=== PATIENT | male | born 1990 | race Caucasian/White ===

== ENCOUNTER → 2018-04-07 | Outpatient (CLI) | payer BC ==
--- NOTE | 2018-04-07 13:43 | US ---
EXAMINATION TYPE: US abdomen complete DATE OF EXAM: 04/07/2018 COMPARISON: NONE CLINICAL HISTORY: R10.9 Abdominal Pain. General pain, bloating EXAM MEASUREMENTS: Liver Length: 18.8 cm Gallbladder Wall: 0.2 cm CHD: 0.4 cm Spleen: 13.0 cm Right Kidney: 10.5x 5.7 x 6.4 cm Left Kidney: 10.5 x 5.4 x 5.6 cm Limited exam due to patient body habitus and overlying bowel gas Pancreas: Appears echogenic, gas obscuring tail Liver: Increased attenuation, decreased visualization of vessels suggestive of fatty infiltrate. Ap pears enlarged and heterogenous Gallbladder: wnl Evidence for sonographic Lawson's sign: neg CBD: Obscured by overlying bowel gas CHD: wnl Spleen: wnl Right Kidney: wnl Left Kidney: wnl Upper IVC: Obscured by overlying bowel gas Abd Aorta: Obscured by overlying bowel gas The intrahepatic portion of the IVC and proximal abdominal aorta are within normal limits. There i s no evidence of cholelithiasis. Common bile duct is unremarkable. The visualized portions of the p ancreas are homogenous. The spleen is unremarkable. Kidneys are symmetric and free of hydronephrosi s. No renal lesions are seen. IMPRESSION: 1. Hepatomegaly with underlying hepatic steatosis versus diffuse hepatocellular disease.
== END | disposition home or self-care (01) ==
LOC: RADUSWWP 12:56
PROVIDERS: ATTEND Family Medicine
DX: R16.0 Hepatomegaly, not elsewhere classified (principal)
CPT/HCPCS: 76700

== ENCOUNTER 2024-12-10 15:57 | Emergency (ER) | payer BC ==
--- NOTE | 2024-12-10 16:33 | ED ---
Male Urogenital HPI - General Chief complaint: Urogenital Stated complaint: Urogenital Time Seen by Provider: 12/10/24 16:14 Source: patient, RN notes reviewed Mode of arrival: ambulatory Limitations: no limitations - History of Present Illness Initial comments: This is a 34-year-old male presenting with worsening testicular pain (06/30) and swelling. Patient endorses recently being diagnosed with a varicocele and hydrocele 2 days ago and advised to follow-up with urology, with the soonest appointment being 2 weeks from now. States he is also being treated for a UTI with ciprofloxacin despite not having urinary symptoms. Endorses use of Motrin 600 and Tylenol with minimal relief. Denies urethral discharge, hematuria, dysuria, increased urinary frequency. MD Complaint: testicle pain, testicle swelling Onset/Timin -: days(s) Severity scale (1-10): 10 Consistency: constant - Related Data Previous Rx's Medication Instructions Recorded Doxycycline [Vibramycin] 100 mg PO BID #20 capsule 12/10/24 Allergies Allergy/AdvReac Type Severity Reaction Status Date / Time hydrocodone AdvReac Unknown Verified 12/10/24 16:19 Review of Systems ROS Statement: Those systems with pertinent positive or pertinent negative responses have been documented in the HPI. ROS Other: All systems not noted in ROS Statement are negative. Past Medical History Past Medical History: Asthma History of Any Multi-Drug Resistant Organisms: None Reported Past Surgical History: No Surgical Hx Reported Past Psychological History: No Psychological Hx Reported Smoking Status: Never smoker Past Alcohol Use History: Occasional Past Drug Use History: None Reported General Exam Limitations: no limitations General appearance: alert, in no apparent distress Head exam: Present: atraumatic, normocephalic, normal inspection Eye exam: Present: normal appearance, PERRL, EOMI. Absent: scleral icterus, conjunctival injection, periorbital swelling ENT exam: Present: normal exam, mucous membranes moist Neck exam: Present: normal inspection. Absent: tenderness, meningismus, lymphadenopathy Respiratory exam: Present: normal lung sounds bilaterally. Absent: respiratory distress, wheezes, rales, rhonchi, stridor Cardiovascular Exam: Present: regular rate, normal rhythm, normal heart sounds. Absent: systolic murmur, diastolic murmur, rubs, gallop, clicks GI/Abdominal exam: Present: soft, normal bowel sounds. Absent: distended, tenderness, guarding, rebound, rigid exam: Present: testicular tenderness, scrotal swelling, other (Diffuse left testicular edema and tenderness. Cremasteric reflex intact). Absent: urethral discharge, vertical testicular lie Extremities exam: Present: normal inspection, full ROM, normal capillary refill. Absent: tenderness, pedal edema, joint swelling, calf tenderness Back exam: Present: normal inspection Neurological exam: Present: alert, oriented X3, CN II-XII intact Psychiatric exam: Present: normal affect, normal mood Skin exam: Present: warm, dry, intact, normal color. Absent: rash Course Vital Signs 12/10/24 12/10/24 12/10/24 16:11 18:22 19:00 Temperature 99.0 F 100.6 F H Pulse Rate 111 H 119 H 113 H Respiratory 18 20 19 Rate Blood Pressure 183/109 143/92 132/89 O2 Sat by Pulse 99 97 97 Oximetry 12/10/24 20:25 Temperature 99.4 F Pulse Rate 98 Respiratory 19 Rate Blood Pressure 140/82 O2 Sat by Pulse 96 Oximetry Medical Decision Making - Medical Decision Making Was pt. sent in by a medical professional or institution (, PA, HEALTHCARE ANALYST, urgent care, hospital, or senior care...) When possible be specific @ -[No] Did you speak to anyone other than the patient for history (EMS, parent, family, police, friend...)? What history was obtained from this source @ -[No] Did you review nursing and triage notes (agree or disagree)? Why? @ -[I reviewed and agree with nursing and triage notes] Were old charts reviewed (outside hosp., previous admission, EMS record, old EKG, old radiological studies, urgent care reports/EKG's, senior care records)? Report findings @ -[No old charts were reviewed] Differential Diagnosis (chest pain, altered mental status, abdominal pain women, abdominal pain men, vaginal bleeding, weakness, fever, dyspnea, syncope, headache, dizziness, GI bleed, back pain, seizure, CVA, palpatations, mental health, musculoskeletal)? @ -Varicocele, hydrocele, orchitis, epididymitis, STI, UTI, prostatitis, this is not an exhaustive list EKG interpreted by me (3pts min.). @ -Not done X-rays interpreted by me (1pt min.). @ -[None done] CT interpreted by me (1pt min.). @ -[None done] U/S interpreted by me (1pt. min.). @ -[None done] What testing was considered but not performed or refused? (CT, X-rays, U/S, labs)? Why? @ -[None] What meds were considered but not given or refused? Why? @ -[None] Did you discuss the management of the patient with other professionals (professionals i.e. , PA, HEALTHCARE ANALYST, lab, RT, psych nurse, sr. social media & mobile manager, truck driver heavy, teacher, biosecurity officer, case consultant)? Give summary @ -[No] Was smoking cessation discussed for >3mins.? @ -[No] Was critical care preformed (if so, how long)? @ -[No] Were there social determinants of health that impacted care today? How? (Homelessness, low income, unemployed, alcoholism, drug addiction, transportation, low edu. Level, literacy, decrease access to med. care, skilled nursing, rehab)? @ -[No] Was there de-escalation of care discussed even if they declined (Discuss DNR or withdrawal of care, Hospice)? DNR status @ -[No] What co-morbidities impacted this encounter? (DM, HTN, Smoking, COPD, CAD, Cancer, CVA, ARF, Chemo, Hep., AIDS, mental health diagnosis, sleep apnea, morbid obesity)? @ -[None] Was patient admitted / discharged? Hospital course, mention meds given and route, prescriptions, significant lab abnormalities, going to OR and other pertinent info. @ -[hospital course] Undiagnosed new problem with uncertain prognosis? @ -[No] Drug Therapy requiring intensive monitoring for toxicity (Heparin, Nitro, Insulin, Cardizem)? @ -[No] Were any procedures done? @ -[No] Diagnosis/symptom? @ -Epididymoorchitis Acute, or Chronic, or Acute on Chronic? @ -Acute Uncomplicated (without systemic symptoms) or Complicated (systemic symptoms)? @ -Uncomplicated Side effects of treatment? @ -[No] Exacerbation, Progression, or Severe Exacerbation? @ -Progression Poses a threat to life or bodily function? How? (Chest pain, USA, IA, pneumonia, PE, COPD, DKA, ARF, appy, cholecystitis, CVA, Diverticulitis, Homicidal, Suicidal, threat to staff... and all critical care pts) @ -[No] - Lab Data Result diagrams: 12/10/24 18:17 12/10/24 18:17 Lab Results 12/10/24 12/10/24 12/10/24 Range/Units 18:17 18:17 20:15 WBC 9.4 (3.8-10.6) k/uL RBC 5.30 (4.30-5.90) m/uL Hgb 16.1 (13.0-17.5) gm/dL Hct 48.5 (39.0-53.0) % MCV 91.5 (80.0-100.0) fL MCH 30.4 (25.0-35.0) pg MCHC 33.2 (31.0-37.0) g/dL RDW 13.4 (11.5-15.5) % Plt Count 226 (150-450) k/uL MPV 8.4 Neutrophils % 75 % Lymphocytes % 15 % Monocytes % 6 % Eosinophils % 2 % Basophils % 1 % Neutrophils # 7.1 (1.3-7.7) k/uL Lymphocytes # 1.4 (1.0-4.8) k/uL Monocytes # 0.6 (0-1.0) k/uL Eosinophils # 0.2 (0-0.7) k/uL Basophils # 0.1 (0-0.2) k/uL Sodium 142 (137-145) mmol/L Potassium 4.2 (3.5-5.1) mmol/L Chloride 104 (98-107) mmol/L Carbon Dioxide 27 (22-30) mmol/L Anion Gap 11 mmol/L BUN 16 (9-20) mg/dL Creatinine 0.70 (0.66-1.25) mg/dL Est GFR (CKD-EPI)AfAm >90 (>60 ml/min/1.73 sqM) Est GFR (CKD-EPI)NonAf >90 (>60 ml/min/1.73 sqM) Glucose 104 H (74-99) mg/dL Calcium 9.2 (8.4-10.2) mg/dL Total Bilirubin 0.6 (0.2-1.3) mg/dL AST 49 (17-59) U/L ALT 89 H (4-49) U/L Alkaline Phosphatase 98 (38-126) U/L Total Protein 8.0 (6.3-8.2) g/dL Albumin 4.7 (3.5-5.0) g/dL Urine Color Light Yellow Urine Appearance Clear (Clear) Urine pH 7.5 (5.0-8.0) Ur Specific [place] 1.022 (1.001-1.035) Urine Protein Negative (Negative) Urine Glucose (UA) Negative (Negative) Urine Ketones Negative (Negative) Urine Blood Negative (Negative) Urine Nitrite Negative (Negative) Urine Bilirubin Negative (Negative) Urine Urobilinogen <2.0 (<2.0) mg/dL Ur Leukocyte Esterase Large H (Negative) Urine RBC 3 (0-5) /hpf Urine WBC 135 H (0-5) /hpf Ur Squamous Epith Cells 1 (0-4) /hpf Amorphous Sediment Rare H (None) /hpf Urine Bacteria Occasional H (None) /hpf Urine Mucus Rare H (None) /hpf Disposition Clinical Impression: Orchitis and epididymitis, UTI (urinary tract infection) Disposition: HOME SELF-CARE Condition: Good Instructions (If sedation given, give patient instructions): Epididymo-Orchitis (ED), Urinary Tract Infection in Men (ED) Additional Instructions: Follow-up with urologist for scheduled appointment. Take antibiotic regimens to completion, even if feeling better per way through. Supportive underwear/jockstrap recommended. Prescriptions: Doxycycline [Vibramycin] 100 mg PO BID #20 capsule Is patient prescribed a controlled substance at d/c from ED?: No Referrals: Spencer Joel MD [Primary Care Provider] - 1-2 days Time of Disposition: 18:54
--- NOTE | 2024-12-10 16:53 | XR ---
EXAMINATION TYPE: XR chest 2V DATE OF EXAM: 12/10/2024 4:43 PM COMPARISON: None. CLINICAL INDICATION: Male, 34 years old with history of Chest Pain, TECHNIQUE: Frontal and lateral views of the chest are obtained. FINDINGS: There is no focal air space opacity, pleural effusion, or pneumothorax seen. The cardiac silhouette size is within normal limits. The osseous structures are intact. IMPRESSION: No acute cardiopulmonary process. [facility], , 12/10/2024 4:50 PM
--- NOTE | 2024-12-10 18:03 | US ---
EXAMINATION TYPE: US scrotum with doppler. DATE OF EXAM: 12/10/2024 COMPARISON: NONE CLINICAL INDICATION: Male, 34 years old with history of Increased testicular pain and swelling; Patie nt had discomfort left testicle on Thursday, then pain and swelling started Thursday and has increased si nce. Patient states he had ultrasound at outside facility a couple days ago and they found a hydroce le and varicocele. TECHNIQUE: Grayscale, color Doppler and spectral Doppler imaging of the scrotum. FINDINGS: EXAM MEASUREMENTS: TESTICLES: Right Testicle: 4.7 x 3.0 x 1.9 cm Left Testicle: 4.8 x 3.2 x 2.6 cm. Appears slightly heterogeneous with increased vascularity. EPIDIDYMIS HEAD: Right Epididymis: 0.9 x 1.2 x 1.0 cm. *Subcentimeter anechoic area noted within epi head. Left Epididymis: 1.4 x 1.6 x 2.0 cm. Slightly enlarged and increased vascularity noted. Doppler performed to assess for testicular vascularity; bilateral color flow and spectral waveforms a re seen. Presence of hydroceles: Yes, left: 4.3 x 2.6 x 1.9 cm. Presence of varicoceles: *Prominent vessels seen lateral to left testicle measure up to 4 mm. IMPRESSION: Findings are felt to reflect left-sided epididymo orchitis. Correlate clinically. [facility], , 12/10/2024 6:00 PM
[2024-12-10 18:25] LABS: Basophils # (A) 0.1 k/uL (0-0.2); Basophils % (A) 1 %; Eosinophils # (A) 0.2 k/uL (0-0.7); Eosinophils % (A) 2 %; HCT 48.5 % (39.0-53.0); HGB 16.1 gm/dL (13.0-17.5); Lymphocytes # (A) 1.4 k/uL (1.0-4.8); Lymphocytes % (A) 15 %; MCH 30.4 pg (25.0-35.0); MCHC 33.2 g/dL (31.0-37.0); MCV 91.5 fL (80.0-100.0); Mean Platelet Volume 8.4; Monocytes # (A) 0.6 k/uL (0-1.0); Monocytes % (A) 6 %; Neutrophils # (A) 7.1 k/uL (1.3-7.7); Neutrophils % (A) 75 %; Platelet Count 226 k/uL (150-450); RDW 13.4 % (11.5-15.5); WBC 9.4 k/uL (3.8-10.6)
[2024-12-10] MEDS: KETOROLAC 15 MG/ML 1 ML VIAL IVP STA (18:29)
[2024-12-10] MEDS: HYDROmorphone 0.5 MG/0.5 ML SYRINGE IVP STA (18:30)
[2024-12-10 18:37] LABS: ALT 89 U/L (4-49); AST 49 U/L (17-59); African American GFR (CKD) >90 (>60 ml/min/1.73 sqM); Albumin 4.7 g/dL (3.5-5.0); Alkaline Phosphatase 98 U/L (38-126); Anion Gap 11 mmol/L; Blood Urea Nitrogen 16 mg/dL (9-20); Calcium 9.2 mg/dL (8.4-10.2); Carbon Dioxide 27 mmol/L (22-30); Chloride 104 mmol/L (98-107); Glucose 104 mg/dL (74-99); Non-African American GFR(CKD) >90 (>60 ml/min/1.73 sqM); Potassium 4.2 mmol/L (3.5-5.1); Sodium 142 mmol/L (137-145); Total Bilirubin 0.6 mg/dL (0.2-1.3)
[2024-12-10] MEDS: cefTRIAXone IN SWFI 1,000 MG/10 ML SYRINGE IVP STA (18:50)
[2024-12-10] MEDS: ACETAMINOPHEN TAB 500 MG TAB PO STA (18:53)
[2024-12-10] MEDS: AZITHROMYCIN 500 MG TAB PO STA (18:53)
[2024-12-10] MEDS: IBUPROFEN 800 MG TAB PO STA (18:54)
[2024-12-10] MEDS: DOXYCYCLINE 100 MG TABLET PO ONE (18:55)
[2024-12-10 19:01] VITALS: RESP 19
[2024-12-10 20:30] LABS: Amorphous Sediment,Urine Rare /hpf; Appearance,Urine Clear (Clear); Bacteria,Urine Occasional /hpf; Bilirubin,Urine Negative (Negative); Blood,Urine Negative (Negative); Color,Urine Light Yellow; Glucose,Urine (UA) Negative (Negative); Ketones,Urine Negative (Negative); Leukocyte Esterase,Urine Large (Negative); Mucus,Urine Rare /hpf; Nitrite,Urine Negative (Negative); PH, Urine 7.5 (5.0-8.0); Protein,Urine Negative (Negative); RBC,Urine 3 /hpf (0-5); Specific Gravity,Urine 1.022 (1.001-1.035); Squamous Epithelial Cell,Urine 1 /hpf (0-4); Urobilinogen,Urine <2.0 mg/dL (<2.0); WBC,Urine 135 /hpf (0-5)
[2024-12-10 22:23] VITALS: BP 128/65; PULSE 105; TEMP 98.5
[2024-12-12 12:50] LABS: N. gonorrhoeae,PCR Negative (Negative)
[2024-12-12 13:16] LABS: C. trachomatis,PCR Negative (Negative)
== END 2024-12-10 22:23 | disposition home or self-care (01) ==
LOC: EC 15:57
DX: N45.3 Epididymo-orchitis (principal); N39.0 Urinary tract infection, site not specified; Z88.5 Allergy status to narcotic agent
CPT/HCPCS: 36415; 80053; 85025; 81001; 87491; 87591; 87086; 71046; 93975; 76870; 99284; 96374; 96375 ×2; J0696; J1885; J1171

== ENCOUNTER 2024-12-12 11:15 | Inpatient (IN) | payer BC ==
--- NOTE | 2024-12-12 11:30 | ED ---
Male Urogenital HPI - General Source: patient, RN notes reviewed Mode of arrival: ambulatory Limitations: no limitations <Osmel Mishra - Last Filed: 12/12/24 11:29> - General Source: patient, RN notes reviewed Mode of arrival: ambulatory Limitations: no limitations <Kelly Reyes - Last Filed: 12/12/24 18:22> - General Chief complaint: Urogenital Stated complaint: testicular pain Time Seen by Provider: 12/12/24 11:29 - History of Present Illness Initial comments: Quick note: 34-year-old male presented the ER for evaluation testicular pain. Patient was seen here on Thursday and diagnosed with epididymoorchitis and started on ciprofloxacin and doxycycline. Patient followed up with PCP today and stated he was having chills and shivering last night. Patient sent him to the emergency department for evaluation given concern of worsening infection. Patient denies concern of STDs. (Osmel Mishra) This is a 34-year-old male who presents to the emergency department for left- sided testicular pain. States that he was initially started on ciprofloxacin 5 days ago, but was not improving and then presented to the emergency department 2 days ago. He was diagnosed with epididymoorchitis and started on doxycycline in addition to the ciprofloxacin. States that he continues taking these medications but has not gotten any better, states that he feels like he is getting worse. He started to develop chills but has not measured any fevers. Reports mild nausea. Pain is also now starting to radiate into his left hip. Denies any concern of STDs. He is taking ibuprofen and Tylenol without any relief. He followed up with his PCP who advised he come here for IV antibiotics. (Kelly Reyes) - Related Data Home Medications Medication Instructions Recorded Confirmed Albuterol Inhaler [Ventolin Hfa 2 puff INHALATION RT-QID PRN 12/12/24 12/12/24 Inhaler] Ciprofloxacin HCl [Cipro] 500 mg PO Q12HR 12/12/24 12/12/24 Ibuprofen [Motrin] 600 mg PO Q8H PRN 12/12/24 12/12/24 Multivitamins, Thera [Multivitamin 1 tab PO DAILY 12/12/24 12/12/24 (formulary)] Previous Rx's Medication Instructions Recorded Doxycycline [Vibramycin] 100 mg PO BID #20 capsule 12/10/24 Allergies Allergy/AdvReac Type Severity Reaction Status Date / Time hydrocodone AdvReac Unknown Verified 12/12/24 14:30 Review of Systems ROS Other: All systems not noted in ROS Statement are negative. <Osmel Mishra - Last Filed: 12/12/24 11:29> ROS Other: All systems not noted in ROS Statement are negative. <Kelly Reyes - Last Filed: 12/12/24 18:22> ROS Statement: Those systems with pertinent positive or pertinent negative responses have been documented in the HPI. Past Medical History Past Medical History: Asthma History of Any Multi-Drug Resistant Organisms: None Reported Past Surgical History: No Surgical Hx Reported Past Psychological History: No Psychological Hx Reported Smoking Status: Never smoker Past Alcohol Use History: Occasional Past Drug Use History: None Reported <Osmel Mishra - Last Filed: 12/12/24 11:29> General Exam <Osmel Mishra - Last Filed: 12/12/24 11:29> General appearance: alert, in no apparent distress Head exam: Present: atraumatic, normocephalic, normal inspection Respiratory exam: Present: normal lung sounds bilaterally. Absent: respiratory distress, wheezes, rales, rhonchi, stridor Cardiovascular Exam: Present: regular rate, normal rhythm exam: Present: other (Left sided scrotal tenderness and swelling) Neurological exam: Present: alert, oriented X3, CN II-XII intact Psychiatric exam: Present: normal affect, normal mood Skin exam: Present: warm, dry, intact, normal color. Absent: rash <Kelly Reyes - Last Filed: 12/12/24 18:22> - General Exam Comments Initial Comments: Visual Physical Exam Vital signs reviewed General: Well-appearing, nontoxic, no acute distress. Head: Normocephalic, atraumatic Eyes: PERRLA, EOMI ENT: Airway patent Chest: Nonlabored breathing Skin: No visual rash, normal skin tone Neuro: Alert and oriented 3 Musculoskeletal: No gross abnormalities (Osmel Mishra) Course Vital Signs 12/12/24 12/12/24 11:34 16:23 Temperature 98 F 98.9 F Pulse Rate 97 83 Respiratory 18 20 Rate Blood Pressure 137/89 119/78 O2 Sat by Pulse 99 98 Oximetry Medical Decision Making <Osmel Mishra - Last Filed: 12/12/24 11:29> - Lab Data Result diagrams: 12/12/24 11:56 12/12/24 11:56 - Radiology Data Radiology results: report reviewed, image reviewed <Kelly Reyes - Last Filed: 12/12/24 18:22> - Medical Decision Making I performed the quick note portion of this chart. Electronically signed by Osmel Mishra PA-C (Osmel Mishra) This is a 34-year-old male who presents to the emergency department for testicular pain. Was pt. sent in by a medical professional or institution? @ -No Did you speak to anyone other than the patient for history? @ -No Did you review nursing and triage notes? @ -Yes, and I agree, it is accurate with regards to the patient's symptoms. Were old charts reviewed? @ -Scrotal ultrasound from 12/10/2024 demonstrating left-sided epididymoorchitis. Urine culture from 12/10/2024 revealed no growth. Gonorrhea and Chlamydia testing from 12/10/24 were negative. Differential Diagnosis? @ -UTI, epididymitis, orchitis, testicular torsion, this is not meant to be an all-inclusive list. EKG interpreted by me (3pts min.)? @ -Not obtained X-rays interpreted by me (1pt min.)? @ -Not obtained CT interpreted by me (1pt min.)? @ -Not obtained U/S interpreted by me (1pt. min.)? @ -Scrotal ultrasound obtained. My interpretation identifies no evidence of testicular torsion. What testing was considered but not performed? (CT, X-rays, U/S, labs)? Why? @ -None What meds were considered but not given? Why? @ -None Did you discuss the management of the patient with other professionals? @ -Yes, Dr. Buckley, urology, who advised admission to medicine and starting him on ceftriaxone and vancomycin. [facility] accepts the patient for admission to medicine. Did you reconcile home meds? @ -Yes Was smoking cessation discussed for >3mins.? @ -No Was critical care preformed (if so, how long)? @ -No Were there social determinants of health that impacted care today? How? (Homelessness, low income, unemployed, alcoholism, drug addiction, transportation, low edu. Level, literacy, decrease access to med. care, prison, rehab)? @ -No Was there de-escalation of care discussed even if they declined? (Discuss DNR or withdrawal of care, Hospice)? @ -No What co-morbidities impacted this encounter? (DM, HTN, Smoking, COPD, CAD, Cancer, CVA, Hep., AIDS, mental health diagnosis, sleep apnea, morbid obesity)? @ -None Was patient admitted / discharged? @ -Admitted. Lab work demonstrates mild leukocytosis with a white blood cell count of 10.9. CRP elevated at 14.7. Urinalysis demonstrates elevated WBCs and rare bacteria, however this is also how his urine appeared a couple of days ago and the culture returned negative. Gonorrhea and Chlamydia testing from that timeframe are also negative. We did repeat the ultrasound and findings continue to be consistent with left epididymoorchitis based on asymmetrically increased vascularity in the left testes. Case discussed with Dr. Buckley, urology, who was agreeable to admission for failure of outpatient management. He had first been given 1 g ceftriaxone and 750 mg of levofloxacin when he got here. Per Dr. Buckley's recommendations, he was then given a dose of vancomycin and they will plan to continue him on ceftriaxone and vancomycin. Patient admitted to medicine for left epididymoorchitis and failure of outpatient management. Urology and ID listed as consult. Case discussed with ED attending Dr. Gilmore. Undiagnosed new problem with uncertain prognosis? @ -None Drug Therapy requiring intensive monitoring for toxicity (Heparin, Nitro, Insulin, Cardizem)? @ -None Were any procedures done? @ -None Diagnosis/symptom? @ -Left epididymoorchitis, failure of outpatient management Acute, or Chronic, or Acute on Chronic? @ -Acute Uncomplicated (without systemic symptoms) or Complicated (systemic symptoms)? @ -Complicated Side effects of treatment? @ -None Exacerbation, Progression, or Severe Exacerbation] @ -Not applicable Poses a threat to life or bodily function? @ -Yes, can lead to worsening infection (Kelly Reyes) - Lab Data Lab Results 12/12/24 12/12/24 12/12/24 Range/Units 11:56 11:56 11:56 WBC 10.9 H (3.8-10.6) k/uL RBC 5.02 (4.30-5.90) m/uL Hgb 15.2 (13.0-17.5) gm/dL Hct 45.2 (39.0-53.0) % MCV 90.1 (80.0-100.0) fL MCH 30.3 (25.0-35.0) pg MCHC 33.6 (31.0-37.0) g/dL RDW 13.1 (11.5-15.5) % Plt Count 234 (150-450) k/uL MPV 7.8 Neutrophils % 74 % Lymphocytes % 16 % Monocytes % 7 % Eosinophils % 1 % Basophils % 0 % Neutrophils # 8.1 H (1.3-7.7) k/uL Lymphocytes # 1.8 (1.0-4.8) k/uL Monocytes # 0.7 (0-1.0) k/uL Eosinophils # 0.2 (0-0.7) k/uL Basophils # 0.1 (0-0.2) k/uL Sodium 138 (137-145) mmol/L Potassium 4.4 (3.5-5.1) mmol/L Chloride 107 (98-107) mmol/L Carbon Dioxide 22 (22-30) mmol/L Anion Gap 9 mmol/L BUN 14 (9-20) mg/dL Creatinine 0.75 (0.66-1.25) mg/dL Est GFR (CKD-EPI)AfAm >90 (>60 ml/min/1.73 sqM) Est GFR (CKD-EPI)NonAf >90 (>60 ml/min/1.73 sqM) Glucose 109 H (74-99) mg/dL Plasma Lactic Acid Maurizio 1.1 (0.7-2.0) mmol/L Calcium 9.0 (8.4-10.2) mg/dL Total Bilirubin 0.7 (0.2-1.3) mg/dL AST 29 (17-59) U/L ALT 54 H (4-49) U/L Alkaline Phosphatase 90 (38-126) U/L C-Reactive Protein (<1.0) mg/dL Total Protein 7.5 (6.3-8.2) g/dL Albumin 4.3 (3.5-5.0) g/dL Urine Color Urine Appearance (Clear) Urine pH (5.0-8.0) Ur Specific [place] (1.001-1.035) Urine Protein (Negative) Urine Glucose (UA) (Negative) Urine Ketones (Negative) Urine Blood (Negative) Urine Nitrite (Negative) Urine Bilirubin (Negative) Urine Urobilinogen (<2.0) mg/dL Ur Leukocyte Esterase (Negative) Urine RBC (0-5) /hpf Urine WBC (0-5) /hpf Urine Bacteria (None) /hpf Urine Mucus (None) /hpf 12/12/24 12/12/24 Range/Units 11:56 13:41 WBC (3.8-10.6) k/uL RBC (4.30-5.90) m/uL Hgb (13.0-17.5) gm/dL Hct (39.0-53.0) % MCV (80.0-100.0) fL MCH (25.0-35.0) pg MCHC (31.0-37.0) g/dL RDW (11.5-15.5) % Plt Count (150-450) k/uL MPV Neutrophils % % Lymphocytes % % Monocytes % % Eosinophils % % Basophils % % Neutrophils # (1.3-7.7) k/uL Lymphocytes # (1.0-4.8) k/uL Monocytes # (0-1.0) k/uL Eosinophils # (0-0.7) k/uL Basophils # (0-0.2) k/uL Sodium (137-145) mmol/L Potassium (3.5-5.1) mmol/L Chloride (98-107) mmol/L Carbon Dioxide (22-30) mmol/L Anion Gap mmol/L BUN (9-20) mg/dL Creatinine (0.66-1.25) mg/dL Est GFR (CKD-EPI)AfAm (>60 ml/min/1.73 sqM) Est GFR (CKD-EPI)NonAf (>60 ml/min/1.73 sqM) Glucose (74-99) mg/dL Plasma Lactic Acid Maurizio (0.7-2.0) mmol/L Calcium (8.4-10.2) mg/dL Total Bilirubin (0.2-1.3) mg/dL AST (17-59) U/L ALT (4-49) U/L Alkaline Phosphatase (38-126) U/L C-Reactive Protein 14.7 H (<1.0) mg/dL Total Protein (6.3-8.2) g/dL Albumin (3.5-5.0) g/dL Urine Color Light yellow Urine Appearance Clear (Clear) Urine pH 5.5 (5.0-8.0) Ur Specific [place] 1.011 (1.001-1.035) Urine Protein Negative (Negative) Urine Glucose (UA) Negative (Negative) Urine Ketones Negative (Negative) Urine Blood Trace H (Negative) Urine Nitrite Negative (Negative) Urine Bilirubin Negative (Negative) Urine Urobilinogen <2.0 (<2.0) mg/dL Ur Leukocyte Esterase Moderate H (Negative) Urine RBC 2 (0-5) /hpf Urine WBC 16 H (0-5) /hpf Urine Bacteria Rare H (None) /hpf Urine Mucus Rare H (None) /hpf Disposition <Osmel Mishra - Last Filed: 12/12/24 11:29> <Kelly Reyes - Last Filed: 12/12/24 18:22> Clinical Impression: Epididymo-orchitis, Failure of outpatient treatment Disposition: ADMITTED IP TO THIS HOSP
[2024-12-12 12:04] LABS: Basophils # (A) 0.1 k/uL (0-0.2); Basophils % (A) 0 %; Eosinophils # (A) 0.2 k/uL (0-0.7); Eosinophils % (A) 1 %; HCT 45.2 % (39.0-53.0); HGB 15.2 gm/dL (13.0-17.5); Lymphocytes # (A) 1.8 k/uL (1.0-4.8); Lymphocytes % (A) 16 %; MCH 30.3 pg (25.0-35.0); MCHC 33.6 g/dL (31.0-37.0); MCV 90.1 fL (80.0-100.0); Mean Platelet Volume 7.8; Monocytes # (A) 0.7 k/uL (0-1.0); Monocytes % (A) 7 %; Neutrophils # (A) 8.1 k/uL (1.3-7.7); Neutrophils % (A) 74 %; Platelet Count 234 k/uL (150-450); RBC 5.02 m/uL (4.30-5.90); RDW 13.1 % (11.5-15.5); WBC 10.9 k/uL (3.8-10.6)
[2024-12-12 12:20] LABS: ALT 54 U/L (4-49); AST 29 U/L (17-59); African American GFR (CKD) >90 (>60 ml/min/1.73 sqM); Albumin 4.3 g/dL (3.5-5.0); Alkaline Phosphatase 90 U/L (38-126); Anion Gap 9 mmol/L; Blood Urea Nitrogen 14 mg/dL (9-20); Carbon Dioxide 22 mmol/L (22-30); Chloride 107 mmol/L (98-107); Glucose 109 mg/dL (74-99); Non-African American GFR(CKD) >90 (>60 ml/min/1.73 sqM); Potassium 4.4 mmol/L (3.5-5.1); Sodium 138 mmol/L (137-145); Total Bilirubin 0.7 mg/dL (0.2-1.3); Total Protein 7.5 g/dL (6.3-8.2)
[2024-12-12] MEDS: HYDROmorphone 1 MG/ML 1 ML SYRINGE IVP STA (13:54)
[2024-12-12] MEDS: KETOROLAC 15 MG/ML 1 ML VIAL IVP STA (13:54)
[2024-12-12] MEDS: SODIUM CHLORIDE 0.9% 1,000 ML IV ONE (13:59)
[2024-12-12 14:06] LABS: Appearance,Urine Clear (Clear); Bacteria,Urine Rare /hpf; Bilirubin,Urine Negative (Negative); Blood,Urine Trace (Negative); Glucose,Urine (UA) Negative (Negative); Ketones,Urine Negative (Negative); Leukocyte Esterase,Urine Moderate (Negative); Mucus,Urine Rare /hpf; Nitrite,Urine Negative (Negative); PH, Urine 5.5 (5.0-8.0); Protein,Urine Negative (Negative); RBC,Urine 2 /hpf (0-5); Specific Gravity,Urine 1.011 (1.001-1.035); Urobilinogen,Urine <2.0 mg/dL (<2.0); WBC,Urine 16 /hpf (0-5)
[2024-12-12 14:15] LABS: Color,Urine Light yellow
[2024-12-12] MEDS: LEVOFLOXACIN 750MG-D5W PMX 750 MG in DEXTROSE/WATER 1 150ML.BAG IVPB STA (14:34)
--- NOTE | 2024-12-12 15:03 | US ---
EXAMINATION TYPE: US scrotum with doppler. DATE OF EXAM: 12/12/2024 COMPARISON: NONE CLINICAL INDICATION: Male, 34 years old with history of Left-sided testicular pain; Increased pain si nce previous exam on 12/10/24. TECHNIQUE: Grayscale, color Doppler and spectral Doppler imaging of the scrotum. FINDINGS: EXAM MEASUREMENTS: TESTICLES: Right Testicle: 4.4 x 2.2 x 3.2 cm Left Testicle: 4.7 x 2.7 x 3.8 cm EPIDIDYMIS HEAD: Right Epididymis: 0.9 x 1.0 x 0.9 cm Left Epididymis: 0.8 x 1.0 x 0.6 cm Doppler performed to assess for testicular vascularity; good bilateral color flow and spectral wavefo alfonzo are seen. There is no evidence of testicular torsion. Presence of hydroceles: Yes left side Presence of varicoceles: Yes left side Increased vascularity in left testicle. IMPRESSION: Asymmetrically increased vascularity in the left testis correlate for left epididymoorchitis. [facility], , 12/12/2024 3:01 PM
[2024-12-12] MEDS ORDERED: VANCOMYCIN IV PER PHARMACY 1 EACH MISC MISCELLANE PRN (15:37)
[2024-12-12] MEDS ORDERED: NALOXONE 0.4 MG/ML 1 ML VIAL IV PRN (15:51)
[2024-12-12] MEDS ORDERED: HYDROmorphone 0.5 MG/0.5 ML SYRINGE IVP PRN (15:51)
[2024-12-12] MEDS ORDERED: IBUPROFEN 400 MG TAB PO PRN (15:51)
[2024-12-12] MEDS ORDERED: ONDANSETRON 4 MG/2 ML VIAL IVP PRN (15:51)
[2024-12-12] MEDS ORDERED: ALBUTEROL NEBULIZED 2.5 MG/3 ML INHALATION PRN (15:53)
[2024-12-12] MEDS ORDERED: IBUPROFEN 600 MG TAB PO PRN (15:53)
[2024-12-12] MEDS: SODIUM CHLORIDE 0.9% 1,000 ML IV SCH (15:59)
[2024-12-12] MEDS: cefTRIAXone IN SWFI 1,000 MG/10 ML SYRINGE IVP STA (16:05)
[2024-12-12] MEDS: VANCOMYCIN 2,000 MG in SODIUM CHLORIDE 0.9% 500 ML 500 ML IVPB STA (16:17)
[2024-12-12] MEDS: HYDROmorphone 1 MG/ML 1 ML SYRINGE IVP PRN (17:23)
--- NOTE | 2024-12-12 17:55 | P.HPIM ---
History of Present Illness H&P Date: 12/12/24 History of present illness; 34-year-old man with PMH significant for asthma presented to the emergency department for further evaluation of worsening left-sided testicular pain. He originally noticed the pain on 12/05/2024, and had presented to [facility] on 12/07/2024 for evaluation. It was at that time he was initiated on ciprofloxacin. He noticed no improvement and presented to [facility] on 12/10/2024 for further evaluation of worsening left testicular pain. At that time he underwent a scrotal ultrasound and was diagnosed with left-sided epididymo-orchitis and was given doxycycline to add in addition to the ciprofloxacin he had been taking. The discomfort and pain continued to progress through the weekend and this morning he went to his primary care physician who determined at that time that the best course of action would be to represent to the emergency department for further evaluation of the discomfort. Before presenting to the emergency department he had been alternating Tylenol and ibuprofen to help alleviate the pain, which she notes was hardly touched by these medications. He states that the pain is a 10/10 and any bit of motion involving his scrotum, with the only alleviation coming from maintaining still while lying down. He does endorse having fevers/chills overnight, however did not take his temperature at that time. He denies any nausea, vomiting, diarrhea. He has no concern for STDs and was noted to be negative on gonorrhea and chlamydia when tested on 12/10/2024, and notes no trauma that he can recall. He does note that within the last month he traveled to multiple countries within the [facility] on vacation. He states he was fully vaccinated with MMR as a child. The case was discussed with urologist, Dr. Andi stoll, who advised admission to the medicine service for administration of IV antibiotics. He has been started on IV antibiotics with vancomycin and cefepime. He has no acute complaints at this time, stating when he doesn't have to move at all, with the additional pain medication, his pain is well controlled at this time. Labratory review: -WBCs 10.9, hemoglobin 15.2, hematocrit 45.2, platelet 234; sodium 138, potassium 4.4, BUN 14, creatinine 0.75, glucose 109, lactic acid 1.1, AST 29, ALT 54, alkaline phosphatase 90 -UA: Trace blood and moderate leukocyte esterase Imaging: -Scrotal ultrasound showed good bilateral color flow and spectral waveform seen, no evidence of testicular torsion. Hydrocele and varicocele present on the left side. Increased vascularity of the left testicle. Vitals: Temperature 98 F, heart rate 97, blood pressure 137/89, respiratory rate 18, SpO2 99% on room air Patient admitted to internal medicine service REVIEW OF SYSTEMS: Pertinent positives and negatives noted in HPI. The rest of the 14-point review of systems is negative. Physical Exam: General: nontoxic, no distress, appears at stated age Derm: warm, dry, intact Head: atraumatic, normocephalic, symmetric Eyes: EOMI, anicteric sclera Mouth: no lip lesion, mucus membranes moist Cardiovascular: S1 S2 reg, no murmur, rubs, or gallops Lungs: CTA bilateral, no rales, no accessory muscle use Abdominal: soft, non-tender to palpataion, no appreciable organomegaly : Erythema and edema of the left side of his scrotum. Diffuse tenderness to palpation, however most notably at the posterior aspect Extremities: no gross muscle atrophy, no edema, no contractures Neuro: Alert, Oriented, CNII-XII grossly intact, gait normal Psych: well appearing, appropriate affect Assessment and plan 34-year-old man with PMH of asthma presents to the emergency department for further evaluation of worsening left-sided testicular pain. Initially began treatment with ciprofloxacin 5 days ago, noticed there was no improvement and presents to the emerged department 2 days ago in which she was initiated on doxycycline and diagnosed with epididymo-orchitis. He is admitted to the medicine service for initiation of IV antibiotics forepididymo-orchitis, with ceftriaxone and vancomycin. #Epididymo-orchitis -Initiated on IV vancomycin and cefepime -Continue with pain and nausea control -Blood and urine culture ordered, currently pending -Chlamydia and gonorrhea PCR from the patient's urine ordered, currently pending -Mumps IgG and IgM antibody ordered, currently pending -Urology consulted -Infectious disease consulted GI prophylaxis: DVT prophylaxis: The patient is admitted with an anticipated more than than 2 midnight stay for evaluation of epididymo-orchitis CODE STATUS: Full code Discussed with: Patient Anticipated discharge place: Pending clinical course Dictation was produced using [employer] software. please excuse any grammatical, word or spelling errors. I saw and evaluated the patient during the carrero and critical portions of this encounter, and discussed the case in detail with the resident author of this note, I agree with the Assessment and Plan, and my changes, if any, are highlighted in blue. Past Medical History Past Medical History: Asthma History of Any Multi-Drug Resistant Organisms: None Reported Past Surgical History: No Surgical Hx Reported Past Psychological History: No Psychological Hx Reported Smoking Status: Never smoker Past Alcohol Use History: Occasional Past Drug Use History: None Reported Medications and Allergies Home Medications Medication Instructions Recorded Confirmed Type Doxycycline [Vibramycin] 100 mg PO BID #20 capsule 12/10/24 12/12/24 Rx Albuterol Inhaler [Ventolin Hfa 2 puff INHALATION RT-QID PRN 12/12/24 12/12/24 History Inhaler] Ciprofloxacin HCl [Cipro] 500 mg PO Q12HR 12/12/24 12/12/24 History Ibuprofen [Motrin] 600 mg PO Q8H PRN 12/12/24 12/12/24 History Multivitamins, Thera [Multivitamin 1 tab PO DAILY 12/12/24 12/12/24 History (formulary)] Allergies Allergy/AdvReac Type Severity Reaction Status Date / Time hydrocodone AdvReac Unknown Verified 12/12/24 14:30 Physical Exam Osteopathic Statement: *. No significant issues noted on an osteopathic structural exam other than those noted in the History and Physical/Consult. Vitals: Vital Signs Temp Pulse Resp BP Pulse Ox 12/12/24 11:34 98 F 97 18 137/89 99 Intake and Output 12/12/24 12/12/24 12/12/24 06:59 14:59 22:59 Other: Weight 127.006 kg Results CBC & Chem 7: 12/12/24 11:56 12/12/24 11:56 Labs: Abnormal Lab Results - Last 24 Hours (Table) 12/12/24 12/12/24 12/12/24 Range/Units 11:56 11:56 11:56 WBC 10.9 H (3.8-10.6) k/uL Neutrophils # 8.1 H (1.3-7.7) k/uL Glucose 109 H (74-99) mg/dL ALT 54 H (4-49) U/L C-Reactive Protein 14.7 H (<1.0) mg/dL Urine Blood (Negative) Ur Leukocyte Esterase (Negative) Urine WBC (0-5) /hpf Urine Bacteria (None) /hpf Urine Mucus (None) /hpf 12/12/24 Range/Units 13:41 WBC (3.8-10.6) k/uL Neutrophils # (1.3-7.7) k/uL Glucose (74-99) mg/dL ALT (4-49) U/L C-Reactive Protein (<1.0) mg/dL Urine Blood Trace H (Negative) Ur Leukocyte Esterase Moderate H (Negative) Urine WBC 16 H (0-5) /hpf Urine Bacteria Rare H (None) /hpf Urine Mucus Rare H (None) /hpf
--- NOTE | 2024-12-12 21:18 | P.CONS ---
History of Present Illness - Reason for Consult Consult date: 12/12/24 Left epididymoorchitis failure of outpatient treatment Requesting physician: Kelly Reyes - Chief Complaint Left testicle pain and swelling x 1 week - History of Present Illness Patient is a 34-year-old male with a past medical history significant for asthma started having a problem with left testicular pain and swelling that he noticed initially on 12/05/2024 patient mention he was seen at [facility] 2 days later and has been treated with oral ciprofloxacin however the patient did not have improvement subsequently evaluated at [facility] ER on 12/10/2024 patient did have ultrasound at that time which evidence of left epididymoorchitis oral doxycycline was added to his Cipro regimen discharge home now presenting with worsening pain and swelling to the left testicular area that apparently is getting worse patient denies high-grade fever from chills, denies having a headache or URI symptoms no chest pain shortness of breath or cough no nausea or vomiting no abdominal pain has been complaining of pain mostly to the left testicular area describing it to be sharp moderate intensity without any radiation. Denies having any urethral drainage or burning of urine on presentation to hospital the patient was afebrile no fever have recorded subsequently patient white count was 10.9 with a left shift creatinine has been normal liver enzymes are normal ALT is 54 urine shows moderate leukocyte Estrace 16 WBC patient did have scrotal ultrasound no evidence of testicular torsion patient started on Rocephin and vancomycin infectious disease was consulted for further management of antibiotic therapy Review of Systems Positive point and negatives has been mentioned in the HPI, complete review of systems was performed and all other systems are negative Past Medical History Past Medical History: Asthma History of Any Multi-Drug Resistant Organisms: None Reported Past Surgical History: No Surgical Hx Reported Past Psychological History: No Psychological Hx Reported Smoking Status: Never smoker Past Alcohol Use History: Occasional Past Drug Use History: None Reported Medications and Allergies Home Medications Medication Instructions Recorded Confirmed Type Doxycycline [Vibramycin] 100 mg PO BID #20 capsule 12/10/24 12/12/24 Rx Albuterol Inhaler [Ventolin Hfa 2 puff INHALATION RT-QID PRN 12/12/24 12/12/24 History Inhaler] Ciprofloxacin HCl [Cipro] 500 mg PO Q12HR 12/12/24 12/12/24 History Ibuprofen [Motrin] 600 mg PO Q8H PRN 12/12/24 12/12/24 History Multivitamins, Thera [Multivitamin 1 tab PO DAILY 12/12/24 12/12/24 History (formulary)] Allergies Allergy/AdvReac Type Severity Reaction Status Date / Time hydrocodone AdvReac Unknown Verified 12/12/24 14:30 Physical Exam Vitals: Vital Signs Temp Pulse Resp BP Pulse Ox 12/12/24 16:23 98.9 F 83 20 119/78 98 12/12/24 11:34 98 F 97 18 137/89 99 Intake and Output 12/12/24 12/12/24 12/12/24 06:59 14:59 22:59 Other: Weight 127.006 kg GENERAL DESCRIPTION: Middle-age male lying in bed, no distress. No tachypnea or accessory muscle of respiration use. HEENT: Shows Pallor , no scleral icterus. Oral mucous membrane is dry. NECK: Trachea central, no thyromegaly. LUNGS: Unlabored breathing. Clear to auscultation anteriorly. No wheeze or crackle. HEART: S1, S2, regular rate and rhythm. No loud murmur ABDOMEN: Soft, no tenderness , : Left testicular did have swollen lymph and tenderness to touch EXTREMITIES: No edema of feet. SKIN: No rash, no masses palpable. NEUROLOGICAL: The patient is awake, alert, oriented x3, mood and affect normal. Results CBC & Chem 7: 12/12/24 11:56 12/12/24 11:56 Labs: Abnormal Lab Results - Last 24 Hours (Table) 12/12/24 12/12/24 12/12/24 Range/Units 11:56 11:56 11:56 WBC 10.9 H (3.8-10.6) k/uL Neutrophils # 8.1 H (1.3-7.7) k/uL Glucose 109 H (74-99) mg/dL ALT 54 H (4-49) U/L C-Reactive Protein 14.7 H (<1.0) mg/dL Urine Blood (Negative) Ur Leukocyte Esterase (Negative) Urine WBC (0-5) /hpf Urine Bacteria (None) /hpf Urine Mucus (None) /hpf 12/12/24 Range/Units 13:41 WBC (3.8-10.6) k/uL Neutrophils # (1.3-7.7) k/uL Glucose (74-99) mg/dL ALT (4-49) U/L C-Reactive Protein (<1.0) mg/dL Urine Blood Trace H (Negative) Ur Leukocyte Esterase Moderate H (Negative) Urine WBC 16 H (0-5) /hpf Urine Bacteria Rare H (None) /hpf Urine Mucus Rare H (None) /hpf Assessment and Plan (1) Failure of outpatient treatment Current Visit: Yes Status: Acute Code(s): Z78.9 - OTHER SPECIFIED HEALTH STATUS SNOMED Code(s): 718946850 (2) Orchitis and epididymitis Current Visit: Yes Status: Acute Code(s): N45.3 - EPIDIDYMO-ORCHITIS SNOMED Code(s): 871734925 (3) UTI (urinary tract infection) Current Visit: No Status: Acute Code(s): N39.0 - URINARY TRACT INFECTION, SITE NOT SPECIFIED SNOMED Code(s): 73432570 Plan: 1patient presented hospital with worsening pain and swelling to the left testicular area did have ultrasound did not show any evidence of torsion concerning for epididymoorchitis failing outpatient Cipro and doxycycline therapy 2-await urine culture as well as chlamydia and GC PCR 3-patient will continue with the vancomycin and Rocephin dose adjusted while waiting for the culture to finalize Question concern answered We will follow on clinical condition and cultures to further adjust medication if needed Thank you for this consultation we will follow the patient along with you Dictation was produced using [employer] dictation software. please excuse any gramm atical, word or spelling errors. Time with Patient: Greater than 30
[2024-12-12] MEDS: ACETAMINOPHEN TAB 325 MG TAB PO PRN (22:55)
[2024-12-13] MEDS: CEFEPIME 1 GM in SODIUM CHLORIDE 0.9% 50 ML IVPB SCH (00:05)
[2024-12-13] MEDS: VANCOMYCIN 2,000 MG in SODIUM CHLORIDE 0.9% 500 ML 500 ML IVPB SCH (00:36)
[2024-12-13 06:02] LABS: Basophils # (A) 0.1 k/uL (0-0.2); Basophils % (A) 1 %; Eosinophils # (A) 0.2 k/uL (0-0.7); Eosinophils % (A) 3 %; HCT 41.8 % (39.0-53.0); HGB 13.6 gm/dL (13.0-17.5); Lymphocytes # (A) 1.6 k/uL (1.0-4.8); Lymphocytes % (A) 23 %; MCH 29.5 pg (25.0-35.0); MCHC 32.7 g/dL (31.0-37.0); MCV 90.2 fL (80.0-100.0); Monocytes # (A) 0.6 k/uL (0-1.0); Monocytes % (A) 8 %; Neutrophils # (A) 4.6 k/uL (1.3-7.7); Neutrophils % (A) 64 %; Platelet Count 213 k/uL (150-450); RBC 4.63 m/uL (4.30-5.90); RDW 12.8 % (11.5-15.5); WBC 7.2 k/uL (3.8-10.6)
[2024-12-13 06:11] LABS: ALT 47 U/L (4-49); AST 32 U/L (17-59); African American GFR (CKD) >90 (>60 ml/min/1.73 sqM); Albumin 3.5 g/dL (3.5-5.0); Albumin/Globulin Ratio 1.3; Alkaline Phosphatase 82 U/L (38-126); Anion Gap 5 mmol/L; Blood Urea Nitrogen 12 mg/dL (9-20); Calcium 8.8 mg/dL (8.4-10.2); Carbon Dioxide 26 mmol/L (22-30); Chloride 106 mmol/L (98-107); Globulin 2.7 g/dL; Glucose 90 mg/dL (74-99); Non-African American GFR(CKD) >90 (>60 ml/min/1.73 sqM); Potassium 4.3 mmol/L (3.5-5.1); Sodium 137 mmol/L (137-145); Total Bilirubin 0.5 mg/dL (0.2-1.3); Total Protein 6.2 g/dL (6.3-8.2)
[2024-12-13] MEDS: MULTIVITAMINS, THERA 1 EACH TAB PO SCH (08:39)
[2024-12-13] MEDS: KETOROLAC 15 MG/ML 1 ML VIAL IVP PRN (08:59)
--- NOTE | 2024-12-13 11:51 | P.GSCN ---
History of Present Illness Consult date: 12/13/24 Reason for Consult: Epididymoorchitis History of present illness: This is a 34-year-old male presented to the hospital with left-sided testicular pain. He was recently in the ER and diagnosed with epididymoorchitis, he has been placed on Cipro and doxycycline and has not noticed any improvement in the pain and the swelling. He is also been experiencing low-grade fevers with chills. He underwent a scrotal ultrasound that was consistent with epididymoorchitis, no abscesses appreciated. He is currently on vancomycin and ceftriaxone, on evaluation this morning he indicated there is improvement compared to yesterday. He denies any dysuria, gross hematuria or flank pain. Denies any previous urological surgeries. Denies any previous similar symptoms. No previous history of's of UTIs, STDs or kidney stones. Review of Systems - Constitutional Reports chills, Reports fever - EENT Ears, nose, mouth and throat: Denies dysphagia - Cardiovascular Denies chest pain, Denies shortness of breath - Respiratory Denies cough, Denies 7 - Gastrointestinal Reports as per HPI - Genitourinary Denies dysuria, Denies flank pain, Denies incontinence, Denies kidney stones - Integumentary Denies rash, Denies unusual bruising - Neurological Denies headaches, Denies syncope Past Medical History Past Medical History: Asthma History of Any Multi-Drug Resistant Organisms: None Reported Past Surgical History: No Surgical Hx Reported Past Psychological History: No Psychological Hx Reported Smoking Status: Never smoker Past Alcohol Use History: Occasional Past Drug Use History: None Reported Medications and Allergies Home Medications Medication Instructions Recorded Confirmed Type Doxycycline [Vibramycin] 100 mg PO BID #20 capsule 12/10/24 12/12/24 Rx Albuterol Inhaler [Ventolin Hfa 2 puff INHALATION RT-QID PRN 12/12/24 12/12/24 History Inhaler] Ciprofloxacin HCl [Cipro] 500 mg PO Q12HR 12/12/24 12/12/24 History Ibuprofen [Motrin] 600 mg PO Q8H PRN 12/12/24 12/12/24 History Multivitamins, Thera [Multivitamin 1 tab PO DAILY 12/12/24 12/12/24 History (formulary)] Allergies Allergy/AdvReac Type Severity Reaction Status Date / Time hydrocodone AdvReac Unknown Verified 12/12/24 14:30 Surgical - Exam Vital Signs Temp Pulse Resp BP Pulse Ox 98 F 97 18 137/89 99 12/12/24 11:34 12/12/24 11:34 12/12/24 11:34 12/12/24 11:34 12/12/24 11:34 - General no distress, moderate pain - Eyes normal ocular movement, no pale - ENT normal nares, normal mucosa - Respiratory normal expansion, normal respiratory effort - Abdomen Abdomen: soft, non tender, no distended - Genitourinary Normal right testicle Left testicle indurated, swollen and tender, this extends into the epididymis. No fluctuance appreciated - Psychiatric oriented to time, oriented to person, oriented to place Results - Labs 12/13/24 05:38 12/13/24 05:38 Abnormal Lab Results - Last 24 Hours (Table) 12/12/24 12/12/24 12/12/24 Range/Units 11:56 11:56 11:56 WBC 10.9 H (3.8-10.6) k/uL Neutrophils # 8.1 H (1.3-7.7) k/uL ESR 44 H (0-15) mm/Hr Glucose 109 H (74-99) mg/dL ALT 54 H (4-49) U/L C-Reactive Protein (<1.0) mg/dL Total Protein (6.3-8.2) g/dL Urine Blood (Negative) Ur Leukocyte Esterase (Negative) Urine WBC (0-5) /hpf Urine Bacteria (None) /hpf Urine Mucus (None) /hpf 12/12/24 12/12/24 12/13/24 Range/Units 11:56 13:41 05:38 WBC (3.8-10.6) k/uL Neutrophils # (1.3-7.7) k/uL ESR (0-15) mm/Hr Glucose (74-99) mg/dL ALT (4-49) U/L C-Reactive Protein 14.7 H (<1.0) mg/dL Total Protein 6.2 L (6.3-8.2) g/dL Urine Blood Trace H (Negative) Ur Leukocyte Esterase Moderate H (Negative) Urine WBC 16 H (0-5) /hpf Urine Bacteria Rare H (None) /hpf Urine Mucus Rare H (None) /hpf Diabetes panel 12/12/24 12/13/24 Range/Units 11:56 05:38 Sodium 138 137 (137-145) mmol/L Potassium 4.4 4.3 (3.5-5.1) mmol/L Chloride 107 106 (98-107) mmol/L Carbon Dioxide 22 26 (22-30) mmol/L BUN 14 12 (9-20) mg/dL Creatinine 0.75 0.78 (0.66-1.25) mg/dL Glucose 109 H 90 (74-99) mg/dL Calcium 9.0 8.8 (8.4-10.2) mg/dL AST 29 32 (17-59) U/L ALT 54 H 47 (4-49) U/L Alkaline Phosphatase 90 82 (38-126) U/L Total Protein 7.5 6.2 L (6.3-8.2) g/dL Albumin 4.3 3.5 (3.5-5.0) g/dL Calcium panel 12/12/24 12/13/24 Range/Units 11:56 05:38 Calcium 9.0 8.8 (8.4-10.2) mg/dL Albumin 4.3 3.5 (3.5-5.0) g/dL Pituitary panel 12/12/24 12/13/24 Range/Units 11:56 05:38 Sodium 138 137 (137-145) mmol/L Potassium 4.4 4.3 (3.5-5.1) mmol/L Chloride 107 106 (98-107) mmol/L Carbon Dioxide 22 26 (22-30) mmol/L BUN 14 12 (9-20) mg/dL Creatinine 0.75 0.78 (0.66-1.25) mg/dL Glucose 109 H 90 (74-99) mg/dL Calcium 9.0 8.8 (8.4-10.2) mg/dL Adrenal panel 12/12/24 12/13/24 Range/Units 11:56 05:38 Sodium 138 137 (137-145) mmol/L Potassium 4.4 4.3 (3.5-5.1) mmol/L Chloride 107 106 (98-107) mmol/L Carbon Dioxide 22 26 (22-30) mmol/L BUN 14 12 (9-20) mg/dL Creatinine 0.75 0.78 (0.66-1.25) mg/dL Glucose 109 H 90 (74-99) mg/dL Calcium 9.0 8.8 (8.4-10.2) mg/dL Total Bilirubin 0.7 0.5 (0.2-1.3) mg/dL AST 29 32 (17-59) U/L ALT 54 H 47 (4-49) U/L Alkaline Phosphatase 90 82 (38-126) U/L Total Protein 7.5 6.2 L (6.3-8.2) g/dL Albumin 4.3 3.5 (3.5-5.0) g/dL Assessment and Plan Assessment: 34-year-old male with left epididymoorchitis, failed outpatient p.o. antibiotics. Currently on ceftriaxone and vancomycin. There is improvement in the pain today compared to yesterday. At this point recommend continuing the IV antibiotics, we will reassess tomorrow. On exam I do not appreciate an abscess. Is most consistent with epididymoorchitis. Continue ceftriaxone and vancomycin We will reassess tomorrow
[2024-12-13] MEDS: ENOXAPARIN 40 MG/0.4 ML SYRINGE SQ SCH (12:42)
--- NOTE | 2024-12-13 13:25 | P.PN ---
Subjective Progress Note Date: 12/13/24 34-year-old man with PMH significant for asthma presented to the emergency department for further evaluation of worsening left-sided testicular pain. He originally noticed the pain on 12/05/2024, and had presented to [facility] on 12/07/2024 for evaluation. It was at that time he was initiated on ciprofloxacin. He noticed no improvement and presented to [facility] on 12/10/2024 for further evaluation of worsening left testicular pain. At that time he underwent a scrotal ultrasound and was diagnosed with left-sided epididymo-orchitis and was given doxycycline to add in addition to the ciprofloxacin he had been taking. The discomfort and pain continued to progress through the weekend and this morning he went to his primary care physician who determined at that time that the best course of action would be to represent to the emergency department for further evaluation of the discomfort. Before presenting to the emergency department he had been alternating Tylenol and ibuprofen to help alleviate the pain, which she notes was hardly touched by these medications. He states that the pain is a 10/10 and any bit of motion involving his scrotum, with the only alleviation coming from maintaining still while lying down. He does endorse having fevers/chills o vernight, however did not take his temperature at that time. He denies any nausea, vomiting, diarrhea. He has no concern for STDs and was noted to be negative on gonorrhea and chlamydia when tested on 12/10/2024, and notes no trauma that he can recall. He does note that within the last month he traveled to multiple countries within the [place] on vacation. He states he was fully vaccinated with MMR as a child. The case was discussed with urologist, Dr. Buckley, who advised admission to the medicine service for administration of IV antibiotics. He has been started on IV antibiotics with vancomycin and cefepime. He has no acute complaints at this time, stating when he doesn't have to move at all, with the additional pain medication, his pain is well controlled at this time. 12/13 - Patient seen and examined at bedside this morning, now on the 6th floor. He notes that he did experience some chills overnight, however endorses feeling much better this morning. He feels as though the pain has decreased some, no longer consistently a sharp pain all the time. Additionally, he feels as though some of the swelling has decreased. Urology was consulted and evaluated the patient, recommended to continue current antibiotic therapy with reassessment occurring on daily basis. He has no acute complaints at this time, excited to be feeling better than he had been for the previous few days. REVIEW OF SYSTEMS: Pertinent positives and negatives noted in HPI. Physical Exam: General: nontoxic, no distress, appears at stated age Derm: warm, dry, intact Head: atraumatic, normocephalic, symmetric Eyes: EOMI, anicteric sclera Mouth: no lip lesion, mucus membranes moist Cardiovascular: S1 S2 reg, no murmur, rubs, or gallops Lungs: CTA bilateral, no rales, no accessory muscle use Abdominal: soft, non-tender to palpataion, no appreciable organomegaly : Erythema and edema of the left side of his scrotum. Diffuse tenderness to palpation, however most notably at the posterior aspect Extremities: no gross muscle atrophy, no edema, no contractures Neuro: Alert, Oriented, CNII-XII grossly intact, gait normal Psych: well appearing, appropriate affect Data Received Today: Labs: WBC 7.2, hemoglobin 13.6, hematocrit 41.8, platelet 213; sodium 137, potassium 4.3, BUN 12, creatinine 0.70, glucose 90, calcium 8.8, total bilirubin 0.5, AST 32, ALT 47, alkaline phosphatase 82 Imagining: No new imaging today Assessment and plan 34-year-old man with PMH of asthma presents to the emergency department for further evaluation of worsening left-sided testicular pain. Initially began treatment with ciprofloxacin 5 days ago, noticed there was no improvement and presents to the emerged department 2 days ago in which she was initiated on doxycycline and diagnosed with epididymo-orchitis. He is admitted to the medicine service for initiation of IV antibiotics forepididymo-orchitis, with ceftriaxone and vancomycin. #Epididymo-orchitis -Continue on IV vancomycin and cefepime (day 2 today) -Continue with pain and nausea control -Blood and urine culture ordered, currently pending -Chlamydia and gonorrhea PCR from the patient's urine ordered, currently pending -Mumps IgG and IgM antibody ordered, currently pending -Urology consulted -Infectious disease consulted DVT ppx: Lovenox 40 mg subcu daily Code status: Full code F: NS 130 cc/h E: Replete as needed N: Regular diet A: Ambulatory Anticipated discharge place: Home Anticipated discharge time: Pending clinical course Dictation was produced using [employer] dictation software. please excuse any grammatical, word or spelling errors. I saw and evaluated the patient during the carrero and critical portions of this encounter, and discussed the case in detail with the resident author of this note, I agree with the Assessment and Plan, and my changes, if any, are highlighted in blue. Objective - Vital Signs Vital signs: Vital Signs Temp 98.8 F 12/13/24 07:59 Pulse 83 12/13/24 07:59 Resp 14 12/13/24 07:59 BP 138/83 12/13/24 07:59 Pulse Ox 95 12/13/24 07:59 FiO2 Intake & Output 12/12/24 12/13/24 12/13/24 18:59 06:59 18:59 Intake Total 118 Balance 118 Weight 127.006 kg 127.006 kg Intake: Oral 118 Other: Voiding Method Toilet Toilet # Voids 2 - Labs CBC & Chem 7: 12/13/24 05:38 12/13/24 05:38 Labs: Abnormal Lab Results - Last 24 Hours (Table) 12/12/24 12/12/24 12/12/24 Range/Units 11:56 11:56 13:41 ESR 44 H (0-15) mm/Hr C-Reactive Protein 14.7 H (<1.0) mg/dL Total Protein (6.3-8.2) g/dL Urine Blood Trace H (Negative) Ur Leukocyte Esterase Moderate H (Negative) Urine WBC 16 H (0-5) /hpf Urine Bacteria Rare H (None) /hpf Urine Mucus Rare H (None) /hpf 12/13/24 Range/Units 05:38 ESR (0-15) mm/Hr C-Reactive Protein (<1.0) mg/dL Total Protein 6.2 L (6.3-8.2) g/dL Urine Blood (Negative) Ur Leukocyte Esterase (Negative) Urine WBC (0-5) /hpf Urine Bacteria (None) /hpf Urine Mucus (None) /hpf
[2024-12-13] MEDS: IOPAMIDOL CONTRAST (ORAL USE) VIAL PO PRN (15:32)
--- NOTE | 2024-12-13 15:53 | P.PN ---
Subjective Progress Note Date: 12/13/24 Principal diagnosis: Reason for follow-up is left epididymoorchitis Patient is a 34-year-old male with a past medical history significant for asthma started having a problem with left testicular pain and swelling that he noticed initially on 12/05/2024 and feeling outpatient oral doxycycline and Cipro therapy ultrasound suggestive of epididymoorchitis no torsion or abscess. On today's evaluation that is 12/13/2024, Patient is afebrile this morning patient denies having any chest pain shortness of breath or cough, the patient is currently on room air, patient denies any abdominal pain no diarrhea no nausea no vomiting, pain to the left groin is correlating slight decrease in intensity. Patient white count is down to 7.2, creatinine 0.78 cultures are currently p ending Objective - Vital Signs Vital signs: Vital Signs Temp 98.8 F 12/13/24 07:59 Pulse 83 12/13/24 07:59 Resp 14 12/13/24 07:59 BP 138/83 12/13/24 07:59 Pulse Ox 95 12/13/24 07:59 FiO2 Intake & Output 12/12/24 12/13/24 12/13/24 18:59 06:59 18:59 Intake Total 118 Balance 118 Weight 127.006 kg 127.006 kg Intake: Oral 118 Other: Voiding Method Toilet Toilet # Voids 2 - Exam GENERAL DESCRIPTION: Middle-age male lying in bed in no distress RESPIRATORY SYSTEM: Unlabored breathing , decreased breath sounds at bases HEART: S1 S2 regular rate and rhythm , ABDOMEN: Soft , no tenderness : Left testicular swelling has slightly decreased EXTREMITIES: No edema feet - Labs CBC & Chem 7: 12/13/24 05:38 12/13/24 05:38 Labs: Abnormal Lab Results - Last 24 Hours (Table) 12/12/24 12/12/24 12/12/24 Range/Units 11:56 11:56 11:56 WBC 10.9 H (3.8-10.6) k/uL Neutrophils # 8.1 H (1.3-7.7) k/uL ESR 44 H (0-15) mm/Hr Glucose 109 H (74-99) mg/dL ALT 54 H (4-49) U/L C-Reactive Protein (<1.0) mg/dL Total Protein (6.3-8.2) g/dL Urine Blood (Negative) Ur Leukocyte Esterase (Negative) Urine WBC (0-5) /hpf Urine Bacteria (None) /hpf Urine Mucus (None) /hpf 12/12/24 12/12/24 12/13/24 Range/Units 11:56 13:41 05:38 WBC (3.8-10.6) k/uL Neutrophils # (1.3-7.7) k/uL ESR (0-15) mm/Hr Glucose (74-99) mg/dL ALT (4-49) U/L C-Reactive Protein 14.7 H (<1.0) mg/dL Total Protein 6.2 L (6.3-8.2) g/dL Urine Blood Trace H (Negative) Ur Leukocyte Esterase Moderate H (Negative) Urine WBC 16 H (0-5) /hpf Urine Bacteria Rare H (None) /hpf Urine Mucus Rare H (None) /hpf Assessment and Plan (1) Failure of outpatient treatment Current Visit: Yes Status: Acute Code(s): Z78.9 - OTHER SPECIFIED HEALTH STATUS SNOMED Code(s): 849789000 (2) Orchitis and epididymitis Current Visit: Yes Status: Acute Code(s): N45.3 - EPIDIDYMO-ORCHITIS S NOMED Code(s): 137455950 (3) UTI (urinary tract infection) Current Visit: No Status: Acute Code(s): N39.0 - URINARY TRACT INFECTION, SITE NOT SPECIFIED SNOMED Code(s): 74690489 Plan: 1patient presented hospital with worsening pain and swelling to the left testicular area did have ultrasound did not show any evidence of torsion con cerning for epididymoorchitis failing outpatient Cipro and doxycycline therapy 2-await urine culture as well as chlamydia and GC PCR 3-patient did have some clinical improvement, to continue vancomycin and Rocephin we will check a pelvis CT to better definition of the underlying pathology Dictation was produced using [employer] dictation software. please excuse any grammatical, word or spelling errors. Time with Patient: Less than 30
--- NOTE | 2024-12-13 17:28 | CT ---
EXAMINATION TYPE: CT pelvis w con CT DLP: 1836.9 mGycm, Automated exposure control for dose reduction was used. DATE OF EXAM: 12/13/2024 5:15 PM COMPARISON: Scrotal ultrasound 12/12/2024, 12/10/2024, abdominal ultrasound 04/07/2018 CLINICAL INDICATION:Male, 34 years old with history of Left groin swelling; left groin/testicular byron n TECHNIQUE: Standard CT of the pelvis following the administration of 100 cc of Isovue [address] material and oral contrast. Coronal and sagittal reformats were performed. FINDINGS: BLADDER: Underdistended without surrounding inflammatory changes. REPRODUCTIVE: Coarse calcifications of the prostate gland are identified. Small left hydrocele with a symmetrically increased size heterogenous hyperenhancing left testicle. There is a questionable skin tract into the base of the penis versus scrotal fold (series 3, image 59). No organized enhancing flu id collection. BOWEL: Distal colonic diverticulosis without evidence for acute diverticulitis. Enteric contrast reac hes the visualized ascending colon. The appendix is within normal limits. No focal bowel wall thicken ing or surrounding inflammatory changes. No evidence of bowel obstruction. PERITONEUM: No evidence of pneumoperitoneum or free fluid. VASCULATURE: Unremarkable. Few pelvic phleboliths. MUSCULOSKELETAL: No acute osseous abnormalities LYMPH NODES: No evidence for lymphadenopathy. SOFT TISSUE/ABDOMINAL WALL: Few foci of gas within the lower anterior abdominal wall subcutaneous tis sues likely from medication injection. IMPRESSION: Enlarged heterogenous hyperenhancing left testicle with small surrounding hydrocele. Comparison with ultrasound findings suggests left epididymal orchitis. There is questionable skin tract from the scro iam wall into the base of the penis versus air trapped between scrotal folds. Direct visualization is recommended. No focal organized fluid collection. [facility], , 12/13/2024 5:26 PM
[2024-12-14 01:03] LABS: Mumps Virus IgG Ab Interp Positive (Negative)
[2024-12-14 08:12] LABS: Basophils % (A) 1 %; Eosinophils # (A) 0.2 k/uL (0-0.7); Eosinophils % (A) 5 %; HCT 45.1 % (39.0-53.0); HGB 14.5 gm/dL (13.0-17.5); Lymphocytes # (A) 1.4 k/uL (1.0-4.8); Lymphocytes % (A) 33 %; MCH 29.1 pg (25.0-35.0); MCHC 32.1 g/dL (31.0-37.0); MCV 90.7 fL (80.0-100.0); Mean Platelet Volume 7.8; Monocytes # (A) 0.4 k/uL (0-1.0); Monocytes % (A) 8 %; Neutrophils # (A) 2.1 k/uL (1.3-7.7); Neutrophils % (A) 49 %; Platelet Count 275 k/uL (150-450); RBC 4.97 m/uL (4.30-5.90); RDW 12.9 % (11.5-15.5); WBC 4.3 k/uL (3.8-10.6)
[2024-12-14 08:30] LABS: African American GFR (CKD) >90 (>60 ml/min/1.73 sqM); Anion Gap 8 mmol/L; Blood Urea Nitrogen 13 mg/dL (9-20); Calcium 8.8 mg/dL (8.4-10.2); Carbon Dioxide 27 mmol/L (22-30); Chloride 106 mmol/L (98-107); Glucose 107 mg/dL (74-99); Non-African American GFR(CKD) >90 (>60 ml/min/1.73 sqM); Potassium 4.3 mmol/L (3.5-5.1); Sodium 141 mmol/L (137-145)
[2024-12-14] MEDS: VANCOMYCIN TROUGH DUE 1 EACH MISC MISCELLANE ONE (09:28)
[2024-12-14] MEDS ORDERED: HYDROcodone/APAP 5-325MG 1 EACH TAB PO PRN (11:00)
--- NOTE | 2024-12-14 11:59 | P.PN ---
Subjective Progress Note Date: 12/14/24 34-year-old man with PMH significant for asthma presented to the emergency department for further evaluation of worsening left-sided testicular pain. He originally noticed the pain on 12/05/2024, and had presented to [facility] on 12/07/2024 for evaluation. It was at that time he was initiated on ciprofloxacin. He noticed no improvement and presented to [facility] on 12/10/2024 for further evaluation of worsening left testicular pain. At that time he underwent a scrotal ultrasound and was diagnosed with left-sided epididymo-orchitis and was given doxycycline to add in addition to the ciprofloxacin he had been taking. The discomfort and pain continued to progress through the weekend and this morning he went to his primary care physician who determined at that time that the best course of action would be to represent to the emergency department for further evaluation of the discomfort. Before presenting to the emergency department he had been alternating Tylenol and ibuprofen to help alleviate the pain, which she notes was hardly touched by these medications. He states that the pain is a 10/10 and any bit of motion involving his scrotum, with the only alleviation coming from maintaining still while lying down. He does endorse having fevers/chills o vernight, however did not take his temperature at that time. He denies any nausea, vomiting, diarrhea. He has no concern for STDs and was noted to be negative on gonorrhea and chlamydia when tested on 12/10/2024, and notes no trauma that he can recall. He does note that within the last month he traveled to multiple countries within the [place] on vacation. He states he was fully vaccinated with MMR as a child. The case was discussed with urologist, Dr. Buckley, who advised admission to the medicine service for administration of IV antibiotics. He has been started on IV antibiotics with vancomycin and cefepime. He has no acute complaints at this time, stating when he doesn't have to move at all, with the additional pain medication, his pain is well controlled at this time. 12/13 - Patient seen and examined at bedside this morning, now on the 6th floor. He notes that he did experience some chills overnight, however endorses feeling much better this morning. He feels as though the pain has decreased some, no longer consistently a sharp pain all the time. Additionally, he feels as though some of the swelling has decreased. Urology was consulted and evaluated the patient, recommended to continue current antibiotic therapy with reassessment occurring on daily basis. He has no acute complaints at this time, excited to be feeling better than he had been for the previous few days. 12/14 - Patient seen and examined at bedside this morning. He notes that he feels as though he is feeling better. He remained afebrile throughout the entire day yesterday and overnight. His urine culture showed to be negative on final result and his blood culture is showing preliminary negative results. Today is day 3 of him receiving IV vancomycin and cefepime. Infectious disease ordered he CT of the pelvis with contrast for further evaluation was read and reviewed. He states he continues to have moderate pain rating it is a 78/10 when moving, however can get comfortable while sitting on the bed. The discomfort remains in the same location of the testicle/scrotum however feels as though some of the edema has improved. He has no acute complaints this time however he is anxious to get the pain better controlled and would like to ensure that when he gets discharged, this is not some that will return/worsen causing him to return to the hospital again. REVIEW OF SYSTEMS: Pertinent positives and negatives noted in HPI. Physical Exam: General: nontoxic, no distress, appears at stated age Derm: warm, dry, intact Head: atraumatic, normocephalic, symmetric Eyes: EOMI, anicteric sclera Mouth: no lip lesion, mucus membranes moist Cardiovascular: S1 S2 reg, no murmur, rubs, or gallops Lungs: CTA bilateral, no rales, no accessory muscle use Abdominal: soft, non-tender to palpataion, no appreciable organomegaly : Erythema and edema of the left side of his scrotum- improving. Diffuse tenderness to palpation, however most notably at the posterior aspect. Extremities: no gross muscle atrophy, no edema, no contractures Neuro: Alert, Oriented, CNII-XII grossly intact, gait normal Psych: well appearing, appropriate affect Data Received Today: Labs: WBCs 4.3, hemoglobin 14.5, hematocrit 45.1, platelet 275; Imagining: CT pelvis with contrast showed enlarged heterogeneous hyperenhancing left testicle with small surrounding hydrocele. Comparison with ultrasound findings suggest left epididymal orchitis; there is questionable skin tract from the scrotal wall into the base of the penis versus air trapped tween scrotal folds. Assessment and plan 34-year-old man with PMH of asthma presents to the emergency department for further evaluation of worsening left-sided testicular pain. Initially began treatment with ciprofloxacin 5 days ago, noticed there was no improvement and presents to the emerged department 2 days ago in which she was initiated on doxycycline and diagnosed with epididymo-orchitis. He is admitted to the medicine service for initiation of IV antibiotics forepididymo-orchitis, with ceftriaxone and vancomycin. #Epididymo-orchitis -Continue on IV vancomycin, monitor for renal toxicity and cefepime (day 3 today) -Continue with pain and nausea control -Blood culture preliminary showed to be negative -Urine culture final shown to be negative -Chlamydia and gonorrhea PCR from the patient's urine ordered, currently pending -Mumps virus IgG Ab shown to be positive, with negative mumps virus IgM -Urology consulted -Discussed with ID, likely enteric bacteria causing infection, consider discharging tomorrow on oral antibiotics if continues to improve DVT ppx: Lovenox 40 mg subcu daily Code status: Full code F: NS 130 cc/h E: Replete as needed N: Regular diet A: Ambulatory Anticipated discharge place: Home Anticipated discharge time: Pending clinical course Dictation was produced using [employer] dictation software. please excuse any gr ammatical, word or spelling errors. I have seen and evaluated the patient today. Discussed with the resident and agree with the residents finding and plan as documented in the resident's note. Changes highlighted in blue font. Objective - Vital Signs Vital signs: Vital Signs Temp 98.5 F 12/14/24 02:00 Pulse 75 12/14/24 02:00 Resp 17 12/14/24 02:00 BP 143/83 12/14/24 02:00 Pulse Ox 95 12/14/24 02:00 FiO2 Intake & Output 12/13/24 12/14/24 12/14/24 18:59 06:59 18:59 Intake Total 236 Balance 236 Intake: Oral 236 Other: Voiding Method Toilet Toilet # Voids 2 2 - Labs CBC & Chem 7: 12/14/24 07:52 12/14/24 07:52 Labs: Abnormal Lab Results - Last 24 Hours (Table) 12/12/24 Range/Units 11:56 Mumps Virus IgG Interp Positive A (Negative) Microbiology - Last 24 Hours (Table) 12/12/24 14:06 Blood Culture - Preliminary Blood 12/12/24 13:41 Urine Culture - Final Urine,Voided
--- NOTE | 2024-12-14 13:02 | P.PN ---
Subjective Progress Note Date: 12/14/24 No acute overnight event, CT of pelvis is within normal limits, white count is down to 4.3. He is afebrile this morning and overnight. Slight improvement in the pain compared to yesterday. Objective - Vital Signs Vital signs: Vital Signs Temp 98.1 F 12/14/24 07:45 Pulse 71 12/14/24 07:45 Resp 16 12/14/24 07:45 BP 159/97 12/14/24 07:45 Pulse Ox 99 12/14/24 07:45 FiO2 Intake & Output 12/13/24 12/14/24 12/14/24 18:59 06:59 18:59 Intake Total 236 Balance 236 Intake: Oral 236 Other: Voiding Method Toilet Toilet # Voids 2 2 - Constitutional General appearance: Present: no acute distress - Gastrointestinal General gastrointestinal: Present: distended, soft. Absent: tenderness - Genitourinary Genitourinary Comment(s): Left testicle indurated and swollen, improved compared to yesterday. - Labs CBC & Chem 7: 12/14/24 07:52 12/14/24 07:52 Labs: Abnormal Lab Results - Last 24 Hours (Table) 12/12/24 12/14/24 Range/Units 11:56 07:52 Glucose 107 H (74-99) mg/dL Mumps Virus IgG Interp Positive A (Negative) Microbiology - Last 24 Hours (Table) 12/12/24 14:06 Blood Culture - Preliminary Blood 12/12/24 13:41 Urine Culture - Final Urine,Voided Assessment and Plan Assessment: 34-year-old male with left epididymoorchitis, failed outpatient p.o. antibiotics. Currently on ceftriaxone and vancomycin. Slight improvement in symptoms compared to yesterday, exam has improved today compared to yesterday. I reviewed his CT pelvis, I don't appreciate any drainable abscess or any need for surgical intervention at this point Continue ceftriaxone and vancomycin We will reassess tomorrow
[2024-12-14 15:08] LABS: N. gonorrhoeae,PCR Negative (Negative)
[2024-12-14 15:23] LABS: C. trachomatis,PCR Negative (Negative)
--- NOTE | 2024-12-14 17:55 | P.PN ---
Subjective Progress Note Date: 12/14/24 Principal diagnosis: Reason for follow-up is left epididymoorchitis Patient is a 34-year-old male with a past medical history significant for asthma started having a problem with left testicular pain and swelling that he noticed initially on 12/05/2024 and feeling outpatient oral doxycycline and Cipro therapy ultrasound suggestive of epididymoorchitis no torsion or abscess. On today's evaluation that is 12/14/2024,the patient denies any fever or any chills, patient is breathing comfortably on room air, the patient denies chest pain shortness of breath and no significant cough, patient denies abdominal pain, no nausea vomiting or diarrhea. Pain to the left groin and scrotal area has decreased in intensity no urinary symptoms. Patient white count is 4.3, creatinine 0.75 blood cultures are pending Objective - Vital Signs Vital signs: Vital Signs Temp 98.1 F 12/14/24 07:45 Pulse 71 12/14/24 07:45 Resp 16 12/14/24 07:45 BP 159/97 12/14/24 07:45 Pulse Ox 99 12/14/24 07:45 FiO2 Intake & Output 12/13/24 12/14/24 12/14/24 18:59 06:59 18:59 Intake Total 236 Balance 236 Intake: Oral 236 Other: Voiding Method Toilet Toilet # Voids 2 2 - Exam GENERAL DESCRIPTION: Middle-age male lying in bed in no distress RESPIRATORY SYSTEM: Unlabored breathing , decreased breath sounds at bases HEART: S1 S2 regular rate and rhythm , ABDOMEN: Soft , no tenderness : Left testicular swelling has slightly decreased EXTREMITIES: No edema feet - Labs CBC & Chem 7: 12/14/24 07:52 12/14/24 07:52 Labs: Abnormal Lab Results - Last 24 Hours (Table) 12/12/24 12/14/24 Range/Units 11:56 07:52 Glucose 107 H (74-99) mg/dL Mumps Virus IgG Interp Positive A (Negative) Microbiology - Last 24 Hours (Table) 12/12/24 14:06 Blood Culture - Preliminary Blood 12/12/24 13:41 Urine Culture - Final Urine,Voided Assessment and Plan (1) Failure of outpatient treatment Current Visit: Yes Status: Acute Code(s): Z78.9 - OTHER SPECIFIED HEALTH STATUS SNOMED Code(s): 831995615 (2) Orchitis and epididymitis Current Visit: Yes Status: Acute Code(s): N45.3 - EPIDIDYMO-ORCHITIS SNOMED Code(s): 231280992 (3) UTI (urinary tract infection) Current Visit: No Status: Acute Code(s): N39.0 - URINARY TRACT INFECTION, SITE NOT SPECIFIED SNOMED Code(s): 33006391 Plan: 1patient presented hospital with worsening pain and swelling to the left testicular area did have ultrasound did not show any evidence of torsion concerning for epididymoorchitis failing outpatient Cipro and doxycycline therapy 2-await urine culture as well as chlamydia and GC PCR 3-patient did have some clinical improvement, CT pelvis did shows evidence of left-sided epididymoorchitis but no abscess 4we will continue with the current vancomycin Rocephin for the 24-hour reevaluate the patient tomorrow before making decision for discharge antibiotics Dictation was produced using [employer] dictation software. please excuse any grammatical, word or spelling errors. Time with Patient: Less than 30
[2024-12-15 07:46] VITALS: RESP 16; TEMP 98.5
--- NOTE | 2024-12-15 11:58 | P.DS ---
Providers Date of admission: 12/12/24 16:01 Expected date of discharge: 12/15/24 Attending physician: Marcos Shultz MD Consults: 12/12/24 15:51 Consult Physician Urgent Consulting Provider: Rajiv Buckley Consult Reason/Comments: Left epididymoorchitis Do you want consulting provider notified?: Yes Consult Physician Urgent Consulting Provider: Dale Ordaz Consult Reason/Comments: Left epididymo-orchitis, failure of outpatient treatment Do you want consulting provider notified?: Yes Primary care physician: Rajan Gastonalessandra [facility] Course: Discharge diagnoses; #Epididymo-orchitis Hospital course; 34-year-old man with PMH significant for asthma presented to the emergency department for further evaluation of worsening left-sided testicular pain. He originally noticed the pain on 12/05/2024, and had presented to [facility] on 12/07/2024 for evaluation. It was at that time he was initiated on ciprofloxacin. He noticed no improvement and presented to [facility] on 12/10/2024 for further evaluation of worsening left testicular pain. At that time he underwent a scrotal ultrasound and was diagn osed with left-sided epididymo-orchitis and was given doxycycline to add in addition to the ciprofloxacin he had been taking. He followed up with his primary care physician on 12/12/2024 with the continuing pain was instructed to return to the emergency department at that time. He had failed the previous 2 antibiotics he had been on, urology and infectious disease were consulted and came and evaluated the patient. He was started on IV vancomycin and IV cefepime which he received while in the hospital. The pain has progressively been improving, and this morning he stated that starting yesterday afternoon he began feeling near complete resolution of his discomfort. Noting he still has some pain, however has not required any pain medication. Per infectious disease recommendation, he will be discharged with 2 antibiotics to take orally for the next 10 days. Additionally, discussed with him the importance of following up with his primary care physician, urology and the infectious disease doctor following discharge from the hospital. He also should take it easy and returning to work, giving himself an additional 1-2 days for complete resolution of his pain/discomfort. He is excited for the possibility of discharge today. Physical Exam: General: nontoxic, no distress, appears at stated age Derm: warm, dry, intact Head: atraumatic, normocephalic, symmetric Eyes: EOMI, anicteric sclera Mouth: no lip lesion, mucus membranes moist Cardiovascular: S1 S2 reg, no murmur, rubs, or gallops Lungs: CTA bilateral, no rales, no accessory muscle use Abdominal: soft, non-tender to palpataion, no appreciable organomegaly : Erythema and edema of the left side of his scrotum- improving. Diffuse tenderness to palpation, however most notably at the posterior aspect. - Im proved Extremities: no gross muscle atrophy, no edema, no contractures Neuro: Alert, Oriented, CNII-XII grossly intact, gait normal Psych: well appearing, appropriate affect Dictation was produced using [employer] dictation software. please excuse any grammatical, word or spelling errors. Jamel Ugaled MD PGY-1 IM A total of 38 minutes of time were spent preparing this complex discharge summary. Patient was discharged on 12/15/2024 at 1140. I have seen and evaluated the patient today. Discussed with the resident and agree with the residents finding and plan as documented in the resident's note. Changes highlighted in blue font. Patient Condition at Discharge: Good Plan - Discharge Summary Discharge Rx Participant: No New Discharge Prescriptions: New cefuroxime axetiL [Ceftin] 500 mg PO BID #20 tab Linezolid [Zyvox] 600 mg PO Q12H #20 tab Continue Albuterol Inhaler [Ventolin Hfa Inhaler] 2 puff INHALATION RT-QID PRN PRN Reason: Shortness Of Breath Multivitamins, Thera [Multivitamin (formulary)] 1 tab PO DAILY Ibuprofen [Motrin] 600 mg PO Q8H PRN PRN Reason: Mild Pain (Scale 1 To 3) Discontinued Doxycycline [Vibramycin] 100 mg PO BID #20 capsule Ciprofloxacin HCl [Cipro] 500 mg PO Q12HR Discharge Medication List Albuterol Inhaler [Ventolin Hfa Inhaler] 2 puff INHALATION RT-QID PRN 12/12/24 [History] Ibuprofen [Motrin] 600 mg PO Q8H PRN 12/12/24 [History] Multivitamins, Thera [Multivitamin (formulary)] 1 tab PO DAILY 12/12/24 [History] Linezolid [Zyvox] 600 mg PO Q12H #20 tab 12/15/24 [Rx] cefuroxime axetiL [Ceftin] 500 mg PO BID #20 tab 12/15/24 [Rx] Follow up Appointment(s)/Referral(s): Spencer Joel MD [Primary Care Provider] - 1-2 days Rajiv Buckley MD [STAFF PHYSICIAN] - 1 Week (Office will call patient with appointment ) Dale Ordaz MD [STAFF PHYSICIAN] - 1 Week (office will call patient with appointment ) Patient Instructions/Handouts: Epididymo-Orchitis (GEN) Discharge Disposition: HOME SELF-CARE
[2024-12-15 12:14] VITALS: BP 147/91; PULSE 72
--- NOTE | 2024-12-15 13:34 | P.PN ---
Subjective Progress Note Date: 12/15/24 Principal diagnosis: Reason for follow-up is left epididymoorchitis Patient is a 34-year-old male with a past medical history significant for asthma started having a problem with left testicular pain and swelling that he noticed initially on 12/05/2024 and feeling outpatient oral doxycycline and Cipro therapy ultrasound suggestive of epididymoorchitis no torsion or abscess. On today's evaluation that is 12/15/2024,the patient remains to be afebrile, patient is on room air not requiring supplemental oxygen and denies any shortness of breath no chest pain or cough.Patient denies having any nausea or vomiting, no abdominal pain and no diarrhea pain to the left groin and scrotal area has decreased feeling much better. No new labs or pain today culture has been negative so far Objective - Vital Signs Vital signs: Vital Signs Temp 98.5 F 12/15/24 07:00 Pulse 80 12/15/24 10:28 Resp 16 12/15/24 10:28 BP 124/79 12/15/24 07:00 Pulse Ox 97 12/15/24 07:00 FiO2 Intake & Output 12/14/24 12/15/24 12/15/24 18:59 06:59 18:59 Intake Total 240 118 590 Balance 240 118 590 Intake: Oral 240 118 590 Other: Voiding Method Toilet # Voids 2 2 - Exam GENERAL DESCRIPTION: Middle-age male lying in bed in no distress RESPIRATORY SYSTEM: Unlabored breathing , decreased breath sounds at bases HEART: S1 S2 regular rate and rhythm , ABDOMEN: Soft , no tenderness : Left testicular swelling has slightly decreased EXTREMITIES: No edema feet - Labs CBC & Chem 7: 12/14/24 07:52 12/14/24 07:52 Labs: Microbiology - Last 24 Hours (Table) 12/12/24 14:06 Blood Culture - Preliminary Blood Assessment and Plan (1) Failure of outpatient treatment Status: Acute Code(s): Z78.9 - OTHER SPECIFIED HEALTH STATUS SNOMED Code(s): 115303426 (2) Orchitis and epididymitis Status: Acute Code(s): N45.3 - EPIDIDYMO-ORCHITIS SNOMED Code(s): 410441058 (3) UTI (urinary tract infection) Status: Acute Code(s): N39.0 - URINARY TRACT INFECTION, SITE NOT SPECIFIED SNOMED Code(s): 61681076 Plan: 1patient presented hospital with worsening pain and swelling to the left testicular area did have ultrasound did not show any evidence of torsion concerning for epididymoorchitis failing outpatient Cipro and doxycycline therapy 2-await urine culture as well as chlamydia and GC PCR 3-patient did have some clinical improvement, CT pelvis did shows evidence of left-sided epididymoorchitis but no abscess 4patient has shown clinical vomiting on IV vancomycin and cefepime, will recommend 10-day course of oral Ceftin and Zyvox prescription sent to the pharmacy and close outpatient follow-up Dictation was produced using [employer] software. please excuse any grammatical, word or spelling errors.
--- NOTE | 2024-12-15 18:00 | P.PN ---
Subjective No acute overnight event, He is afebrile this morning and overnight. Significant improvement in the pain compared to yesterday. Objective - Vital Signs Vital signs: Vital Signs Temp 98.5 F 12/15/24 12:12 Pulse 72 12/15/24 12:12 Resp 16 12/15/24 12:12 BP 147/91 12/15/24 12:12 Pulse Ox 99 12/15/24 12:12 FiO2 Intake & Output 12/14/24 12/15/24 12/15/24 18:59 06:59 18:59 Intake Total 240 118 590 Balance 240 118 590 Intake: Oral 240 118 590 Other: Voiding Method Toilet # Voids 2 2 - Constitutional General appearance: Present: no acute distress - Gastrointestinal General gastrointestinal: Present: soft. Absent: distended, tenderness - Genitourinary Genitourinary Comment(s): Mild swelling in the left testicle and tenderness, improved compared to yesterday - Labs CBC & Chem 7: 12/14/24 07:52 12/14/24 07:52 Labs: Microbiology - Last 24 Hours (Table) 12/12/24 14:06 Blood Culture - Preliminary Blood Assessment and Plan Assessment: 34-year-old male with left epididymoorchitis, failed outpatient p.o. antibiotics. Currently on ceftriaxone and vancomycin. Slight improvement in symptoms compared to yesterday, exam has improved today compared to yesterday and symptoms have improved . I reviewed his CT pelvis, I don't appreciate any drainable abscess or any need for surgical intervention at this point No acute surgical intervention from urology standpoint, he is okay for discharge. Antibiotics per infectious disease
[2024-12-16] MEDS ORDERED: VANCOMYCIN TROUGH DUE 1 EACH MISC MISCELLANE ONE (15:00)
== END 2024-12-15 13:13 | disposition home or self-care (01) | DRG 728 ==
LOC: EC 11:15 → 6NMEDSUR 16:00 → OBSVTOIN 16:01 → 6NMEDSUR 18:32
PROVIDERS: ADMIT Family Medicine; ATTEND Family Medicine
DX: N45.3 Epididymo-orchitis (principal); I86.1 Scrotal varices; N39.0 Urinary tract infection, site not specified; N43.3 Hydrocele, unspecified; Z79.899 Other long term (current) drug therapy
CPT/HCPCS: 36415; 72193; 76870; 80048; 80053; 80202; 81001; 83605; 85025; 85652; 86140; 86735; 87040; 87086; 87491; 87591; 93975; 96361; 96365; 96366; 96367; 96375; 96376; 99285